=== PATIENT | male | born 1955 | race Caucasian/White ===

== ENCOUNTER → 2017-03-18 | Outpatient (CLI) | payer BC ==
--- NOTE | 2017-03-18 12:20 | KCIC ---
EXAM: Right ankle, 3 views. HISTORY: Medial pain. COMPARISON: None. FINDINGS: Frontal, lateral and mortise views of the right ankle are obtained. There is no acute fracture, dislocation or subluxation. The ankle mortise is intact. No osteochondral lesion is seen. There is medial ankle soft tissue swelling. There is a small plantar spur. IMPRESSION: 1. Suspected mild medial ankle soft tissue swelling. 2. Small plantar spur. Electronically signed by: Sangeetha Burnett MD (03/18/2017 12:18 PM)
== END | disposition home or self-care (01) ==
LOC: KCIC 11:55
PROVIDERS: ATTEND Physician Assistant
DX: M25.571 Pain in right ankle and joints of right foot (principal); M79.89 Other specified soft tissue disorders
CPT/HCPCS: 73610

== ENCOUNTER → 2018-11-16 | Outpatient (CLI) | payer BC ==
[~2018-11-16] MED LIST: GADOBUTROL 7.5 MMOL/7.5 ML VIAL IV ONE; LEVO25TA4 PO; PRED2.5T PO
--- NOTE | 2018-11-16 13:15 | KCIC ---
EXAMINATION: Magnetic resonance imaging (MRI) of the brain and brainstem without and with contrast HISTORY: Hearing loss. Right ear hearing loss for one month. TECHNIQUE: Multiplanar multi-weighted MRI of the brain and brainstem was performed without and with intravenous contrast using the internal auditory canal protocol. This included sequences detailing the internal auditory canals and posterior fossa Contrast information: 13 mL Gadolinium based contrast COMPARISON: None available. FINDINGS: The cerebellopontine angles are normal, with no evidence of extra-axial mass or aneurysm. The VII/VIII nerve complexes appear normal. There are no areas of abnormal contrast enhancement. The upper cervical spinal cord and spine are normal. There are T2/FLAIR signal hyperintense foci in the periventricular and subcortical white matter most suggestive of mild chronic small vessel ischemic changes. The scalp and calvarium are normal. The superior sagittal sinus demonstrates normal venous flow. The corpus callosum is normal in shape and signal intensity. The posterior fossa is unremarkable. The pituitary and sella are normal. The brainstem and craniocervical junction are unremarkable. Diffusion weighted images reveal no hyperintensities to suggest acute cerebral infarction. The susceptibility weighted sequences reveal no evidence of acute or chronic hemorrhage. The ventricles are normal in size and position without evidence of hydrocephalus. The paranasal sinuses are normal. The visualized portions of the mastoids are unremarkable. The orbits appear normal. Normal flow voids are demonstrated in the carotid arteries and basilar artery. IMPRESSION: No lesions in the posterior fossa, internal auditory canals, or temporal bones to explain the patient's hearing loss. There are T2/FLAIR signal hyperintense foci in the periventricular and subcortical white matter most suggestive of mild chronic small vessel ischemic changes. No evidence for acute or subacute ischemia. Electronically signed by: May Saleh MD (11/16/2018 1:10 PM) [facility]
== END | disposition home or self-care (01) ==
LOC: KCIC MRI 09:04
PROVIDERS: ATTEND Otolaryngology
DX: H90.41 Sensorineural hearing loss, unilateral, right ear, with unrestricted hearing on the contralateral side (principal)
CPT/HCPCS: 70553; A9585

== ENCOUNTER → 2020-12-25 | Outpatient (CLI) | payer MEDICARE, BC ==
[~2020-12-25] MED LIST changes: +DOCU100C28 PO; -GADOBUTROL 7.5 MMOL/7.5 ML VIAL IV ONE; +HYDR-2761 PO; +LEVO50TA5 PO; +MULT-496 PO; +OMEP20CA16 PO
== END ==
LOC: LAB 10:10
PROVIDERS: ATTEND Podiatrist
DX: Z01.812 Encounter for preprocedural laboratory examination (principal); M20.41 Other hammer toe(s) (acquired), right foot; Z20.822 Contact with and (suspected) exposure to COVID-19
CPT/HCPCS: U0003

== ENCOUNTER 2020-12-28 09:26 | Day surgery (SDC) | payer MEDICARE, BC ==
[~2020-12-28] VITALS: Ht 182.9 cm; Wt 110.2 kg
[~2020-12-28 09:26] MED LIST changes: +BUPIVACAINE MPF 0.5% 30 ML VIAL. ONE; +DEXAMETHASONE SOD PHOS 4 MG/ML VIAL ONE; -DOCU100C28 PO; -HYDR-2761 PO; +HYDROmorphone 2 MG/ML VIAL IVP PRN; +IV RINGERS,LACTATED 1000ML 1,000 ML IV SCH; +LIDOCAINE 1% PF 30 ML VIAL. ONE; +MORPHINE SULFATE 2 MG/ML VIAL. IVP PRN; +POVIDONE-IODINE 10% TOPICAL OINTMENT 28GM TUBE. TP ONE; +PROCHLORPERAZINE 10 MG/2 ML VIAL. IVP PRN; +fentaNYL PF VIAL 100 MCG/2 ML VIAL IVP PRN
--- NOTE | 2020-12-28 09:45 | PDOC1 ---
History and Physical Date of Admission Date of Admission DATE: 12/28/20 TIME: 09:43 Identification/Chief Complaint Chief Complaint right foot, 4th toe pain x 2 yrs, now worse, here for corrective surgery History of Present Illness History of Present Illness 65 yr old wm here for outpatient surgery, has lost 40# due to recent diet changes, denies other symptoms, due for colonoscopy soon, has had 2 colonoscopies in the past without events GERD, HYPOTHYROID ON SYNTHROID RX Past Medical History Past Medical History history of obstructive sleep apnea and has been on CPAP at 9 cm water with good compliance Cardiovascular: No pertinent hx Pulmonary: No pertinent hx Heme/Onc: No pertinent hx Hepatobiliary: No pertinent hx Musculoskeletal: Osteoarthritis Infectious disease: No pertinent hx ENT: No pertinent hx Renal/: No pertinent hx Endocrine: No pertinent hx Dermatology: No pertinent hx Family History Family History: Hypertension Social History Smoke: No ALCOHOL: none Drugs: None Current Medications Current Medications Current Medications Fentanyl Citrate (Fentanyl 2ml Vial) 25 mcg PRN Q5MIN PRN IVP MILD PAIN 1-3; Start 12/28/20 at 06:00; Stop 12/29/20 at 05:59 Fentanyl Citrate (Fentanyl 2ml Vial) 50 mcg PRN Q5MIN PRN IVP MODERATE PAIN 4-6 ; Start 12/28/20 at 06:00; Stop 12/29/20 at 05:59 Morphine Sulfate (Morphine Sulfate) 1 mg PRN Q10MIN PRN IVP SEVERE PAIN 7-10; Start 12/28/20 at 06:00; Stop 12/29/20 at 05:59 Ringer's Solution 1,000 ml @ 30 mls/hr Q24H IV ; Start 12/28/20 at 06:00; Stop 12/28/20 at 17:59 Hydromorphone HCl (Dilaudid) 0.5 mg PRN Q10MIN PRN IVP SEVERE PAIN 7-10, 2nd CHOICE; Start 12/28/20 at 06:00; Stop 12/29/20 at 05:59 Prochlorperazine Edisylate (Compazine) 5 mg PACU PRN PRN IVP NAUSEA, MRX1; Start 12/28/20 at 06:00; Stop 12/29/20 at 05:59 Cefazolin Sodium/ Dextrose 50 ml @ 100 mls/hr 1X PREOP PRN IV PRIOR TO PROCEDURE; Start 12/28/20 at 06:00; Stop 12/28/20 at 18:00 Povidone Iodine (Betadine Oint) 28 crista STK-MED ONCE TP ; Start 12/28/20 at 09:02; Stop 12/28/20 at 09:02; Status DC Lidocaine HCl (Xylocaine 1% Pf 30ml Vial) 30 ml STK-MED ONCE .ROUTE ; Start 12/28/20 at 09:02; Stop 12/28/20 at 09:02; Status DC Dexamethasone Sodium Phosphate (Decadron) 4 mg STK-MED ONCE .ROUTE ; Start 12/28/20 at 09:02; Stop 12/28/20 at 09:02; Status DC Bupivacaine HCl (Sensorcaine Mpf 0.5%) 30 ml STK-MED ONCE .ROUTE ; Start 12/28/20 at 09:03; Stop 12/28/20 at 09:03; Status DC Active Scripts Active Reported Daily Value (Multivitamin) 1 Each Tablet 1 Each PO DAILY Omeprazole 20 Mg Capsule.dr 20 Mg PO DAILY Levothyroxine Sodium 50 Mcg Tablet 50 Mcg PO DAILYAC Allergies Allergies: Coded Allergies: No Known Drug Allergies (Unverified , 12/28/20) ROS Review of System 14 PT ROS OTHERWISE NEG General: No: Chills, Night Sweats, Fatigue, Malaise, Appetite, Other PSYCHOLOGICAL ROS: No: Anxiety, Behavioral Disorder, Concentration difficultie, Decreased libido, Depression, Disorientation, Hallucinations, Hostility, Irritablity, Memory difficulties, Mood Swings, Obsessive thoughts, Physical abuse, Sexual abuse, Sleep disturbances, Suicidal ideation, Other Eyes: No Blurry vision, No Decreased vision, No Double vision, No Dry eyes, No Excessive tearing, No Eye Pain, No Itchy Eyes, No Loss of vision, No Photoph obia, No Scotomata, No Uses contacts, No Uses glasses, No Other HEENT: YES: Hearing change, Snoring, Other (CHRONIC R SIDED HEARING LOSS, FOLLOWED BY ENT); No: Heacaches, Visual Changes, Nasal congestion, Nasal discharge, Oral lesions, Sinus pain, Sore Throat, Epistaxis, Sneezing, Tinnitus, Vertigo, Vocal changes ALLERGY AND IMMUNOLOGY: No: Hives, Insect Bite Sensitivity, Itchy/Watery Eyes, Nasal Congestion, Post Nasal Drip, Seasonal Allergies, Other Hematological and Lymphatic: No: Bleeding Problems, Blood Clots, Blood Transfusions, Brusing, Night Sweats, Pallor, Swollen Lymph Nodes, Other ENDOCRINE: No: Breast Changes, Galactorrhea, Hair Pattern Changes, Hot Flashes, Malaise/lethargy, Mood Swings, Palpitations, Polydipsia/polyuria, Skin Changes, Temperature Intolerance, Unexpected Weight Changes, Other Breast: No New/Changing Breast Lumps, No Nipple changes, No Nipple discharge, No Other Respiratory: No: Cough, Hemoptysis, Orthopnea, Pleuritic Pain, Shortness of breath, SOB with excertion, Sputum Changes, Stridor, Tachypnea, Wheezing, Other Cardiovascular: No Chest Pain, No Palpitations, No Orthopnea, No Paroxysmal Noc. Dyspnea, No Edema, No Lt Headedness, No Other Gastrointestinal: No Nausea, No Vomiting, No Abdominal Pain, No Diarrhea, No Constipation, No Melena, No Hematochezia, No Other Genitourinary: No Dysuria, No Frequency, No Incontinence, No Hematuria, No Retention, No Discharge, No Urgency, No Pain, No Flank Pain, No Other, No , No , No , No , No , No , No Musculoskeletal: Yes Gait Disturbance, Yes Joint Pain, Yes Joint Stiffness, Yes Joint Swelling; No Muscle Pain, No Muscular Weakness, No Pain In:, No Swelling In:, No Other Neurological: Yes Gait Disturbance; No Behavorial Changes, No Bowel/Bladder ControlChng, No Confusion, No Dizziness, No Headaches, No Impaired Coord/balance, No Memory Loss, No Numbness/Tingling, No Seizures, No Speech Problems, No Tremors, No Visual Changes, No Weakness, No Other Skin: No Dry Skin, No Eczema, No Hair Changes, No Lumps, No Mole Changes, No Mottling, No Nail Changes, No Pruritus, No Rash, No Skin Lesion Changes, No Other, No Acne Physical Exam General: Alert, Oriented X3, Cooperative, No acute distress HEENT: PERRLA, EOMI, Mucous membr. moist/pink Lungs: Clear to auscultation, Normal air movement Heart: S1S2, RRR, no thrills, no rubs, no gallops, no murmurs Breasts: Not examined Abdomen: Normal bowel sounds, Soft, No tenderness, No hepatosplenomegaly, No masses Rectal Exam: not examined, deferred PELVIC: Examination not indicated Extremities: No clubbing, No cyanosis, No edema Neuro: Normal speech, Normal tone, Cranial nerves 3-12 NL Psych/Mental Status: Mental status NL, Mood NL Images Images PATIENT: GAURAV MOSQUEDA ACCOUNT: [id number] : 1955 LOCATION: [facility] MRI AGE: 63 SEX: M EXAM STATUS: REG CLI ORD. PHYSICIAN: JAYDEN ENGLE MD REASON: HEARING LOSS PROCEDURE: BRAIN WO/W CONTRAST EXAMINATION: Magnetic resonance imaging (MRI) of the brain and brainstem without and with contrast HISTORY: Hearing loss. Right ear hearing loss for one month. TECHNIQUE: Multiplanar multi-weighted MRI of the brain and brainstem was performed without and with intravenous contrast using the internal auditory canal protocol. This included sequences detailing the internal auditory canals and posterior fossa Contrast information: 13 mL Gadolinium based contrast COMPARISON: None available. FINDINGS: The cerebellopontine angles are normal, with no evidence of extra-axial mass or aneurysm. The VII/VIII nerve complexes appear normal. There are no areas of abnormal contrast enhancement. The upper cervical spinal cord and spine are normal. There are T2/FLAIR signal hyperintense foci in the periventricular and subcortical white matter most suggestive of mild chronic small vessel ischemic changes. The scalp and calvarium are normal. The superior sagittal sinus demonstrates normal venous flow. The corpus callosum is normal in shape and signal intensity. The posterior fossa is unremarkable. The pituitary and sella are normal. The brainstem and craniocervical junction are unremarkable. Diffusion weighted images reveal no hyperintensities to suggest acute cerebral infarction. The susceptibility weighted sequences reveal no evidence of acute or chronic hemorrhage. The ventricles are normal in size and position without evidence of hydrocephalus. The paranasal sinuses are normal. The visualized portions of the mastoids are unremarkable. The orbits appear normal. Normal flow voids are demonstrated in the carotid arteries and basilar artery. IMPRESSION: No lesions in the posterior fossa, internal auditory canals, or temporal bones to explain the patient's hearing loss. There are T2/FLAIR signal hyperintense foci in the periventricular and subcortical white matter most suggestive of mild chronic small vessel ischemic changes. No evidence for acute or subacute ischemia. Electronically signed by: Demetrio Fuller MD (11/16/2018 1:10 PM) [facility] DICTATED and SIGNED BY: DEMETRIO FULLER MD DATE: 11/16/18 1307 VTE Prophylaxis Ordered VTE Prophylaxis Devices: Yes VTE Pharmacological Prophylaxi: No Assessment/Plan Assessment/Plan impression right 4th toe pain, hammertoe obesity JENNY hx hearing loss , RIGHT, stable intentional weight loss, recent, due to dietary changes and exercising covid 19 neg 3-09 Small plantar spur. hx right foot gait disturbance PLAN CBC, COMP. INR, if wnl at low risk for chanell-operative complications scd's left leg colonoscopy soon per GI directions pre-op ekg Justifications for Admission Other Justification SHON RAMOS MD Dec 28, 2020 09:45
[2020-12-28 10:17] LABS: BASO % 0 % (0-3); EOS # 0.1 x10^3/uL (0.0-0.7); EOS % 1 % (0-3); HEMATOCRIT 42.2 % (39.0-53.0); HEMOGLOBIN 14.3 g/dL (13.0-17.5); LYMPH # 1.9 x10^3/uL (1.0-4.8); LYMPH % 29 % (24-48); MEAN CORPUSCULAR HEMOGLOBIN 32 pg (25-35); MEAN CORPUSCULAR HGB CONC 34 g/dL (31-37); MEAN CORPUSCULAR VOLUME 96 fL (79-100); MONO # 0.5 x10^3/uL (0.0-1.1); MONO % 8 % (0-9); NEUT % 62 % (31-73); PLATELET COUNT 155 x10^3/uL (140-400); RED CELL DISTRIBUTION WIDTH 13.6 % (11.5-14.5); WHITE BLOOD COUNT 6.5 x10^3/uL (4.0-11.0)
[2020-12-28 10:24] LABS: CALCIUM 8.6 mg/dL (8.5-10.1); POTASSIUM 4.5 mmol/L (3.5-5.1)
--- NOTE | 2020-12-28 10:24 | EKG ---
[facility] [address] [place] [address] Test Date: 2020-12-28 Test Time: 10:17:14 Pat Name: GAURAV MOSQUEDA Department: Room: Gender: M Roving Hauler: VIVI : 1955 Requested By: SHON RAMOS Order Number: [id number] Reading MD: Measurements Intervals [place] Rate: 48 P: 49 IL: 186 QRS: 23 QRSD: 90 T: 30 QT: 420 QTc: 378 Interpretive Statements SINUS BRADYCARDIA OTHERWISE NORMAL ECG RI6.02 No previous ECG available for comparison
[2020-12-28 10:30] LABS: ALBUMIN 3.6 g/dL (3.4-5.0); TOTAL BILIRUBIN 0.4 mg/dL (0.2-1.0); TOTAL PROTEIN 7.1 g/dL (6.4-8.2)
[2020-12-28] MEDS ORDERED: LIDOCAINE 2% PF 5 ML VIAL. ONE (11:08)
[2020-12-28] MEDS ORDERED: PROPOFOL 10 MG/ML (20ML) VIAL. IV ONE ×3 (11:08→12:12)
[2020-12-28] MEDS ORDERED: BACITRACIN TOPICAL OINT PACKET. TP ONE ×2 (12:18→12:41)
--- NOTE | 2020-12-28 12:47 | DISCH ---
DISCHARGE INSTRUCTIONS Condition on Discharge Condition on Discharge: Stable Activity After Discharge Activity Instructions for Disc: Other, see below (Minimal weight bearing to the right foot with a surgical shoe.) Bathing Instructions: No Tub Bath until see Lifting Instructions after Dis: No heavy lifting, No pulling or pushing, Do not lift >10 pounds Driving Instructions after Dis: Do not drive Weight Bearing Status after Di: Other, see below (Minimal weight bearing to the right foot with a surgical shoe.) Diet after Discharge Diet after Discharge: Regular Wound Incision Care Wound/Incision Care: Keep wound/cast CDI, Keep wound elevated, Do not change dressing Contacting the after DC Call your doctor for: Concerns you may have Follow-Up Follow up with: Dr. Delgado in 5 days (Thu - 01/02/21), please call for appointment [phone] DANIEL DELGADO DPM Dec 28, 2020 12:47
[2020-12-28 12:55] VITALS: BP 140/74
--- NOTE | 2020-12-28 12:59 | PDOC4 ---
OPERATIVE NOTE: Podiatry Post-op Note Date of Surgery: 12/28/20 Pre-operative diagnosis: Hammer toe right 4th digit Post-op diagnosis: Same as above Surgeon: Dr. Daniel Delgado DPM Procedure performed: Hammer toe correction right 4th digit with k-wire fixation Anesthesia: IV Sedation with 10 ml of 1:1 mixture of 0.5% marcaine plain and 1.0% lidocaine plain Hemostasis: Right ankle tourniquet set at 250mmHg Materials used: 0.045 k-wire, 4-0 nylon, 3-0 vicryl Patient tolerated the anesthesia and procedure well and was transported back to PACU with vital signs stable and good perfusion to the digits on the right foot. Patient to followup in clinic in 5 days and to call the clinic prior to it if any issues. Daniel Delgado [phone] DANIEL DELGADO DPM Dec 28, 2020 12:59
[2020-12-28] MEDS ORDERED: HYDROcodone/APAP 5/325MG 1 TAB TABLET PO ONE (13:00)
[2020-12-28] MEDS ORDERED: HYDR-2761 PO (13:21)
[2020-12-28] MEDS ORDERED: DOCU100C28 PO (13:22)
--- NOTE | 2020-12-28 13:53 | RAD ---
EXAM: Right foot, 3 views. HISTORY: Hammertoe deformity. Postoperative evaluation. COMPARISON: None. FINDINGS: 3 views of the right foot are obtained. There is a percutaneous wire traversing the fourth phalanx and there has been an osteotomy involving the distal aspect of the fourth proximal phalanx. T here is a hallux valgus deformity. There is degenerative spurring involving the first metatarsal phal angeal joint. There is an erosion involving the first metatarsal head. There is a healed distal secon d metatarsal fracture. There is internal fixation of medial malleolar fractures. There is a small esme ntar spur. IMPRESSION: 1. Instrumentation due to fourth hammertoe deformity surgery. There has been resection of the distal fourth proximal phalanx and there is a percutaneous wire traversing the fourth phalanx. 2. Hallux valgus with mild first metatarsal phalangeal joint osteoarthritis and suspected metatarsal head erosion. 4. Healed distal fourth metatarsal fracture and internal fixation of bimalleolar fractures. Electronically signed by: Sangeetha Burnett MD (12/28/2020 1:51 PM) [id number]
--- NOTE | 2020-12-28 19:16 | OP ---
DATE OF SURGERY: 12/28/2020 PREOPERATIVE DIAGNOSIS: Hammertoe right 4th digit with pre-ulcerative lesion, right fourth digit proximal interphalangeal joint. POSTOPERATIVE DIAGNOSIS: Hammertoe right 4th digit with pre-ulcerative lesion, right fourth digit proximal interphalangeal joint. SURGEON: Daniel Delgado DPM PROCEDURE PERFORMED: Hammertoe correction with arthroplasty, right fourth digit with K-wire fixation. HEMOSTASIS: Right ankle tourniquet set at 250 mmHg. ANESTHESIA: IV MAC sedation with local anesthesia in a digital block fashion at the right fourth digit using 10 mL of 1:1 mixture of 0.5% Marcaine plain and 1% lidocaine plain. INDICATIONS: This patient is a 65-year-old male with a chronically painful right fourth digit with pre-ulcerative lesion. There was a corn due to the hammertoe deformity of the right fourth digit. The patient tried conservative treatment with wider shoes and accommodative padding and debridement of the lesion with no improvement. The patient got vascular testing prior to the procedure. Procedure was discussed in detail with the patient as well as postoperative course its risks, benefits, complications including delayed healing, nonhealing, need for further surgery, infection, chronic regional pain syndrome, recurrence, numbness, tingling, burning, loss of sensation, blood clots to the leg, blood clots to the lung, overcorrection, under correction, stiff toe, floppy toe, flail toe, lack of purchase of the toe as well as other complications were all discussed in detail with the patient. All questions were answered. No guarantees were made. The patient signed the consent form freely and it was placed in the chart. DESCRIPTION OF PROCEDURE: The patient was transported to the operating room via cart and placed on the operating room table in a supine position. After verification of the patient, the procedure and the site, a well-padded right ankle tourniquet was placed. IV sedation was performed by Anesthesia service and a local anesthetic block was performed at the right fourth ray consisting of 1:1 mixture of 0.5% Marcaine plain and 1% lidocaine plain using 10 mL total. The right foot was then prepped and draped in the usual aseptic manner. Esmarch bandage was used to exsanguinate the right foot and right ankle tourniquet was inflated to 250 mmHg. Attention was then drawn to the right fourth digit PIPJ where 2 elliptical incisions were made to excise the corn and a pre-ulcerative lesion that was visible. Next, incision was deepened with care taken to protect the neurovascular bundle. The incision was deepened to the joint capsule of the PIPJ. A horizontal incision was made along the extensor tendon at the joint capsule and the joint capsule was reflected off the proximal phalanx head of the right fourth digit. Next, the proximal phalanx head was resected about 3 mm in length and it was noted that the toe position was still not in rectus position. Decision was made to do a flexor tenotomy using a separate incision to the medial plantar aspect of the right fourth digit. The toe was then noted to be in rectus position. Next, a K-wire was inserted from the distal tip to the proximal phalanx, keeping the position in a rectus position. The K-wire was cut to the right position and Jurgan ball was applied to protect the distal tip extending out of the toe. The incision site was copiously irrigated with sterile saline solution. The extensor tendon was sutured together with 3-0 Vicryl. The skin incision at the dorsal aspect and the side of the digit was also sutured together using 4-0 nylon. The tourniquet was then deflated with good perfusion noted to the digit. Bacitracin ointment, Adaptic, 4 x 4 gauze, Adin roll and Raffy wrap bandage was then applied to the surgical site. There was good perfusion noted to the digit when the tourniquet was deflated. The patient tolerated the anesthesia and procedure well and was transported to the PACU in stable condition with vascular status intact to the right foot. Postop instructions were placed in the chart. The patient to be minimal weightbearing as tolerated in a surgical shoe. The patient is to follow up in clinic in 5 days or sooner if any issues. The patient was given postoperative medication for pain as well as stool softener for possible constipation. The patient to follow up in clinic. DANIEL DELGADO DPM DR: KYLE/sari JOB#: [id number] / [id number]
== END 2020-12-28 13:50 | disposition home or self-care (01) ==
LOC: SURG 09:26
PROVIDERS: ATTEND Podiatrist
DX: M20.41 Other hammer toe(s) (acquired), right foot (principal); K21.9 Gastro-esophageal reflux disease without esophagitis; E03.9 Hypothyroidism, unspecified; G47.30 Sleep apnea, unspecified; Z72.89 Other problems related to lifestyle; Z79.899 Other long term (current) drug therapy; Z98.890 Other specified postprocedural states
CPT/HCPCS: 28285; 36415; 73630; 80053; 85025; 85610; 85730; 93005; A4213; A4215; A4930; A6223; A6402; A6449; J0690; J2704; J3490; A4657; A6443; J1100